=== PATIENT | female | born 2000 | race African-American/Black ===

== ENCOUNTER → 2022-10-02 11:49 | Outpatient (BNVA) | payer OTHER, SELFPAY | PROVIDERS: Visit Provider Orthopaedic Surgery | DX: S83.282A Other tear of lateral meniscus, current injury, left knee, initial encounter (principal) | CPT/HCPCS: 99202 ==

== ENCOUNTER 2022-11-02 07:12 | Outpatient (REF) | payer OTHER, SELFPAY ==
--- NOTE | ~2022-11-02 | XR_ITS ---
EXAMINATION: XR KNEES, AP STANDING VIEW, BILATERAL XR KNEE, SUNRISE AND LATERAL VIEWS, LEFT CLINICAL INFORMATION: Pain. COMPARISON: 08/28/2022. TECHNIQUE: AP standing view of both knees with sunrise and lateral views of the left knee. FINDINGS: AP standing view of both knees does not demonstrate any evidence of acute fracture or dislocation. Medial and lateral joint space compartments are maintained. No bony abnormality appreciated. [place] and lateral views of the left knee do not demonstrate any evidence of acute fracture or dislocation. No effusion is appreciated. The patellofemoral joint space is maintained. XR/XR knee standing BI IMPRESSION: No significant bony abnormality of the left knee identified.
--- NOTE | ~2022-11-02 | XR_ITS ---
EXAMINATION: XR KNEES, AP STANDING VIEW, BILATERAL XR KNEE, SUNRISE AND LATERAL VIEWS, LEFT CLINICAL INFORMATION: Pain. COMPARISON: 08/28/2022. TECHNIQUE: AP standing view of both knees with sunrise and lateral views of the left knee. FINDINGS: AP standing view of both knees does not demonstrate any evidence of acute fracture or dislocation. Medial and lateral joint space compartments are maintained. No bony abnormality appreciated. [place] and lateral views of the left knee do not demonstrate any evidence of acute fracture or dislocation. No effusion is appreciated. The patellofemoral joint space is maintained. XR/XR knee LT 2V IMPRESSION: No significant bony abnormality of the left knee identified.
== END 2022-11-02 07:13 | disposition home or self-care (01) ==
LOC: HO.HOSX 07:12
PROVIDERS: Visit Provider Physician Assistant
DX: M25.562 Pain in left knee (principal)
CPT/HCPCS: 73560; 73565

== ENCOUNTER 2022-11-11 05:50 | Day surgery (SDC) | payer OTHER, SELFPAY ==
[2022-11-04 14:20] VITALS: BMI 23.1
[2022-11-11] VITALS (7 sets, daily range): BP systolic 102–132; BP diastolic 51–79; PULSE 73–91; RESP 15–18; TEMP 36.4–37.2; O2SAT 98–100
[2022-11-11 06:21] LABS: UPreg QC Valid YES; Urine Pregnancy NEGATIVE (NEGATIVE)
[2022-11-11] MEDS: Lactated Ringers 1,000 ML 100 ML IVCONT (06:30)
--- NOTE | 2022-11-11 07:27 | MHC.SHP ---
Pre-Procedural Eval Section A Date of Service: 11/11/22 The patient is an INPATIENT: No Changes since office visit: No Cold of Flu in the past 2 weeks, No New Medical Problems, No Changes in Medication and No Patient answered all questions The History & Physical has been completed within 30 days and I have reviewed it.: Yes Section B Chief Complaint: Other tear of lateral meniscus, current injury, le Allergies: Allergies Allergy/AdvReac Type Severity Reaction Status Date / Time No Known Allergies Allergy Verified 11/11/22 06:08 Plan I have reviewed the history and physical and performed a pertinent physical examination on my patient. No changes have occurred unless specified. Time Spent With Patient Time: Total time managing care of this patient today ____ minutes.
--- NOTE | 2022-11-11 07:28 | P.CONAN_ITS ---
HPI - Anesthesia Eval Consult details Narrative: 22 F for knee arthroscopy Smoker PMFSH Active Problems Active Problems: All Active Problems (Updated 11/04/22 @ 14:19 by Lauren Ortiz RN) Tear of lateral meniscus of left knee (Acute) Past Medical History Medical History No pertinent past medical history Functional capacity: independent ambulation Family History Family history of problems with anesthesia: No Surgical History Surgical History No pertinent past surgical history History of Problems with Anesthesia: No Social History Social History Are you a primary manager long term care to a significant other at home: No Do you presently have visiting nurse or other home services: No Patient Tobacco Use Status: Never used Tobacco Current occupational status: employed Current occupation: [employer] Allergies Allergy/AdvReac Type Severity Reaction Status Date / Time No Known Allergies Allergy Verified 11/11/22 06:08 Active Medications: Current Medications Lactated Ringer's (Lr) 1,000 mls @ 100 mls/hr IVCONT .Q10H MERE Last Admin: 11/11/22 06:30 Dose: 100 mls/hr Cefazolin Sodium/Dextrose (Ancef) 2 gm in 50 mls @ 100 mls/hr IV POSTOP MERE Exam Exam Date and Time: November 11, [id number] Height,Weight and Vital Signs: Height 5 ft 4 in Weight 61.235 kg Last Vital Signs Temp 98.4 F 11/11/22 06:13 Pulse 88 11/11/22 06:13 Resp 15 11/11/22 06:13 BP 132/79 11/11/22 06:13 Pulse Ox 99 11/11/22 06:13 O2 Del Method 11/11/22 06:13 Pertinent Lab Results Pertinent Lab Results: Laboratory Tests 11/11/22 06:10 Urine Test NEGATIVE Airway Mallampati Class: III TM Dist: >3cm Neck ROM: Full Loose/Missing/Broken Teeth: Yes (Caps ) Heart: S1,S2 Lungs: b/l breath sounds Assessment and Plan Assessment Anesthesia Assessment: Anesthesia Plan Discussed and Chart Reviewed Final Anesthetic Review Family History of Problems with Anesthesia: No History of Problems with Anesthesia: No NPO: Yes ASA Class: II Final Preanesthetic Review: Meds/Allgs Chart Reviewed, Consent Obtained/Reviewed and Anes Risks/Benef Reviewed Patient Risk: Intermediate Procedure Risk: Intermediate Anesthetic Plan Anesthetic Plan: GA Disposition: Standard PACU
--- NOTE | 2022-11-11 09:04 | PM.OP ---
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
--- NOTE | 2022-11-11 11:10 | W.PM.OPN ---
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 A time-out was called to identify proper site proper procedure proper surgeon and IV antibiotics per weight were administered. I began by exsanguinating the limb and insufflating tourniquet to 300 mm Hg. Then made a standard anterolateral stab incision. The knee was insufflated with water and 30 degree arthroscope was placed. There was grade 0 fibrillations of the patella and overall the suprapatellar pouch and the gutters were clean. I descended into the medial compartment where I made my medial portal under direct visualization. There was a normal medial compartment and medical meniscus. The ACL was intact but the lateral meniscus was markedly abnormal. There was a near complete discoid meniscus with the anterior meniscus enveloping thelateral ACL and the intermeniscal ligament taught and abrading the ACL. The lateral capsule was abrading the anterolateral femoral condyle and the posterior and anterior lateral meniscus was torn. I used a combination of biter shaver and cautery to remove unstable portions of the meniscus laterally and posteriorly. I saucerized the central portion of the lateral meniscus revealing nl cartilage underneath. The lateral meniscus was unstable while the posterior portion was stable. Therefore I placed on 2.4 mm all suture anchor through the inferolateral extra-articular tibial plateau and using a suture tape re-approximated the anterolateral meniscus. A capsular repair was not possible given the abnormal derangement of the menicus and how taught and medialized it was. This repair stabilized the tear and I was able to range the knee fully and could now visualize the lateral plateau. The posterior lateral meniscus was diminutive but intact and stable. Approximately 30% of the meniscus was saucerized. Once I was satisfied with the lateral meniscus I removed all instrumentation and closed the portals nylon. 25 mL of 2% Marcaine with epinephrine was injected into the joint and the surrounding soft tissues. Patient was then placed in sterile dressing extubated brought recovery room stable condition. There were no known complications.
== END 2022-11-11 10:35 | disposition home or self-care (01) ==
PROVIDERS: Anesthesiology; Visit Provider Orthopaedic Surgery
PROC: (CPT 29870; principal; 2022-11-11 07:30)
DX: S83.272A Complex tear of lateral meniscus, current injury, left knee, initial encounter (principal); M25.562 Pain in left knee; M23.362 Other meniscus derangements, other lateral meniscus, left knee; X58.XXXA Exposure to other specified factors, initial encounter; Y93.9 Activity, unspecified; Y92.9 Unspecified place or not applicable; Y99.8 Other external cause status
CPT/HCPCS: 29882; 81025; A4649; C1713; J0131; J0171; J0690; J1100; J1170; J2250; J2405; J2795

== ENCOUNTER → 2022-11-20 09:58 | Outpatient (BNVA) | payer OTHER, SELFPAY | PROVIDERS: Visit Provider Orthopaedic Surgery | DX: Z13.89 Encounter for screening for other disorder (principal) ==

== ENCOUNTER → 2022-11-27 10:28 | Outpatient (BNVA) | payer OTHER, SELFPAY | PROVIDERS: Visit Provider Physician Assistant | DX: Z13.89 Encounter for screening for other disorder (principal) ==

== ENCOUNTER → 2022-12-25 13:02 | Outpatient (BNVA) | payer OTHER, SELFPAY | PROVIDERS: Visit Provider Physician Assistant | DX: Z13.89 Encounter for screening for other disorder (principal) ==

== ENCOUNTER → 2023-02-01 13:41 | Outpatient (BNVA) | payer OTHER, SELFPAY | PROVIDERS: Visit Provider Physician Assistant ==

== ENCOUNTER 2023-02-24 10:00 | Outpatient (RCR) | payer OTHER, SELFPAY ==
--- NOTE | 2022-11-24 16:30 | MHC.PT.EP ---
[facility] [place] Office [place] Office [place] Office [address] [place] [address] [phone] F: [phone] F: [phone] F: [phone] F: [phone] Physical Therapy Plan of Care Date of Evaluation: Date of Surgery: 11/11/22 Diagnosis: L lateral meniscal repair Assessment: 22 y/o s/p lateral meniscal repair on 11/11/22. She used B axillary crutches for the first 7 days and states she was WBAT. She was given a locking brace but states she does not wear it (states doctor says she does not have to wear it really). *She arrived with one crutch in L UE and 3 rungs too short with ~30* L knee flexion with gait. CUrrently reports difficulty with dressing, transitional movement, sleeping, walking, and stairs. Examination shows L knee PROM 0-10-60, poor quad set, poor strength of L LE, impaired posture and impaired gait pattern. Educated pt regarding importance of wearing locking brace with gait until quad is stronger and WBAT status. Recommend PT 2x/week for 10 weeks to address impairments, implement HEP, and optimize functional mobility. Frequency and Duration: The patient will be seen 2x/week for 10 weeks Short Term Goals: 5 weeks compliant with HEP Demonstrate L quad set to WNL Demonstrate L knee AROM to 0* extension Demonstrate L knee flexion to [address] Goals: 10 weeks I with HEP and self management of sx Demonstrate full knee AROM to faciliate gait Pt will improve L knee strength to 4/5 to faciliate ascending and descending stairs in step through pattern Treatment Plan: Modalities to reduce pain, spasms and effusion. Manual therapy to restore motion and function. Therapeutic exercise to improve strength and flexibility. Neuromuscular re-education for posture and balance. Therapeutic activities to return to functional activities of daily living. Electronically signed by: Adelina Aguilar PT Please sign and return to therapist. Thank you for your referral.
--- NOTE | 2023-04-01 13:56 | MHC.PT.DC ---
[facility] [place] Office [place] Office [place] Office [address] [place] [address] [phone] F: [phone] F: [phone] F: [phone] F: [phone] Physical Therapy Discharge Report Diagnosis: L lateral meniscal repair Date of Surgery: 11/11/22 Date of Evaluation: 11/24/22 Date of Discharge: 04/01/23 Treatments to Date: 20 Cancellations to Date: 0 No Shows to Date: 0 Discharge Status: Achieved Goals Improved Function Independent with HEP Discharge Summary: Pt has made good progress, has met all goals, and is returning to I gym regime. Pt continues to be challenged with higher level activities however demonstrating improvement in control and self cuing throughout. At this time, will d/c to I HEP Electronically signed by: Adelina Aguilar PT Please sign and return to therapist. Thank you for your referral.
== END 2023-04-01 13:57 | disposition home or self-care (01) ==
LOC: HO.PT 10:00
PROVIDERS: Visit Provider Physician Assistant
DX: S83.282A Other tear of lateral meniscus, current injury, left knee, initial encounter (principal)
CPT/HCPCS: 97110; 97112; 97116; 97161; 97530

== ENCOUNTER → 2023-03-15 15:31 | Outpatient (BNVA) | payer OTHER, SELFPAY | PROVIDERS: Visit Provider Physician Assistant | DX: Z47.89 Encounter for other orthopedic aftercare (principal); S83.282A Other tear of lateral meniscus, current injury, left knee, initial encounter; X58.XXXA Exposure to other specified factors, initial encounter; Y93.9 Activity, unspecified; Y92.9 Unspecified place or not applicable; Y99.8 Other external cause status | CPT/HCPCS: 99212 ==

== ENCOUNTER 2025-06-11 13:01 | Outpatient (AMB) | payer OTHER, SELFPAY ==
--- NOTE | 2025-06-11 13:08 | A.OFFVIS_ITS ---
Intake Visit Reasons: OV- left knee , 11/11/22 NE Intake Note: Reuben is a 25 year old female who presents today for a follow up of her Left Knee 11/11/22 NE. Patient reports when she is going to the gym when she is going for a squat she feels discomfort. Patient is not having pain at the moment and she wants to know what she can and cannot do when she goes to the gym. Allergies No Known Allergies Allergy (Verified 03/15/23 15:39) HPI HPI OV- left knee , 11/11/22 NE: Details: Ms. Haddad is a 25-year-old female who presents to the office today for recommendations on activity modification with gym activities. She is status post left knee arthroscopy performed on 11/11/[address] Newman for left lateral discoid meniscus saucerization and repair. Patient reports that when she is a gentleman she is performing deep squats that she has increase in pain. She is looking to this is what would be safe exercises for her to perform. She reports that today she is not experiencing any pain and overall is happy with her postoperative recovery. [facility] Medical History No pertinent past medical history Surgical History No pertinent past surgical history Social History (Updated 06/11/25 @ 13:12 by Charu Cleveland) Are you a primary palliative care nurse to a significant other at home: No Do you presently have visiting nurse or other home services: No Patient Tobacco Use Status: Never used Tobacco Current occupational status: employed Current occupation: food safety auditor Review of Systems Const All systems reviewed & are unremarkable except as noted in HPI and below Physical Exam Extrem Other: Left knee: Normal to inspection. No ecchymosis, erythema, or joint effusion. No tenderness to palpation along the medial or lateral joint lines. Full knee extension and flexion. Negative Ken's. Negative anterior drawer. NVI. Assessment & Plan Assessment & Plan (1) Tear of lateral meniscus of left knee: Code(s): S83.282A - Other tear of lateral meniscus, current injury, left knee, initial encounter Category: Medical Plan Ms. Haddad is a 25-year-old female who presents to the office today for recommendations on activity modification with gym activities. She is status post left knee arthroscopy performed on 11/11/[address] Newman for left lateral discoid meniscus saucerization and repair. Patient reports that when she is a gentleman she is performing deep squats that she has increase in pain. She is looking to this is what would be safe exercises for her to perform. She reports that today she is not experiencing any pain and overall is happy with her postoperative recovery. I discussed with the patient that the following exercises are not recommended status post discoid meniscus saucerization and repair. * Deep knee bends * Twisting or pivoting motions * Heavy leg press * High impact cardio * Lateral movement - lunges shuttle runs * Hamstring curls - if painful More comfortable options would include: * SLE * Stationary bike * Glute bridges * Isometric holds * No limitations with upper body Coding Level of Care Code Est Pt Level 3 (78953) Diagnoses Tear of lateral meniscus of left knee S83.282A
--- OUTSIDE RECORDS SUMMARY | 2025-06-11 13:41 | XMS_ITS | Clinical Summary ---
Author Organization [facility] Address [address] [place] [address] Phone Care Team Providers Care Grey Iron Molder Name Role Phone Yosi Samuel MD Primary Care Provider [phone] Allergies No known active allergies Medications fluconazole (Diflucan) 150 mg tablet Repeat in 3 days if no improvement 2 tablet Active Active Problems Problem Noted Date Diagnosed Date Anal fissure 05/03/2023 Overview (01/05/2025): Last Assessment & Plan: Comfort measures reviewed. Encouraged PO hydration to keep stool soft. Enlarged thyroid 04/20/2023 Overview (01/05/2025): 07/26/2024 soft tissue sono IMPRESSION IMPRESSION: Unremarkable thyroid ultrasound Last Assessment & Plan: TSH ordered Immunizations Name Administration Dates Next Due DTaP (Infanrix) 6wks to less than 7yo ,07/17/2003,2002,08/22,2002 HPV, Quadrivalent 01/16/2015,10/17/2014,08/16/20 14 Hepatitis B Pediatric (Enger ix B; Recombivax HB) to less than 20 yo 11/22/2006,11/11/2003,2002 Hib (HbOC) 07/27/2003, 2,2002,06/21 IPV Inactivated polio (Ipol) 6wks and older 04/14/2006,2002,2002,05/30 Influenza trivalent, with pr eservative (Fluzone; Afluria) 6mo and older 09/30/2011 MMR, measles mumps and rubel la Live (Priorix; M-M-R II) 12mo and older 04/14/2006,04/10/2003 Meningococcal MCV4P 07/13/2019,08/01/2014 Pneumococcal Conjugate Vacci ne, 7 Valent 07/17/2003,2002,2002,06/21 Tdap Tetanus diptheria acell ular pertussis (Boostrix; Adacel) 7yo and older 02/24/2017,05/28/2011 Varicella live (Varivax) 12m o and older 04/14/2007,04/10/2003 Surgical History Surgery Date Site/Laterality Comments OTHER SURGICAL HISTORY PROCEDURE: HISTORY OTHER; COMMENT: left knee mensicus repair oct 2022 Medical History Medical History Date Comments Chlamydia 04/20/2023 DX:Chlamydia; CO MMENT: Refill on Rx Azithromycin given today for treatment of patient and partner. RTO 3 months for test of reinfection. Encouraged condom use for STI prevention. Family History Medical History Relation Name Comments No Known Problems Father No Known Problems Mother Relation Name Status Comments Brother 1 1/2 Alive Brother 2 1/2 Alive Father Alive Mother Alive Sister 1/2 Alive Social History Tobacco Use Types Packs/Day Years Used Date Smoking Tobacco: Never Smokeless Tobacco: Never Alcohol Use Standard Drinks/Week Comments Yes 0 (1 standard drink = 0.6 oz pur e alcohol) Comments Unknown Sex and Gender Information Value Date Recorded Sex Assigned at Not on file Legal Sex Female 8:34 PM EST Gender Identity Not on file Sexual Orientation Not on file Obstetrics History Last Filed Vital Signs Vital Sign Reading Time Taken Comments Blood Pressure 118/74 01/05/2025 1:19 PM EST Pulse 86 01/05/2025 1:19 PM EST Temperature - - Respiratory Rate - - Oxygen Saturation - - Inhaled Oxygen Concentration - - Weight 63.2 kg (139 lb 6.4 oz) 01/05/2025 1:19 P M EST Height 162.6 cm (5' 4 ) 01/05/2025 1:19 PM EST Body Mass Index 23.93 01/05/2025 1:19 PM EST Plan of Treatment Health Maintenance Due Date Last Done Comments Meningococcal B Vaccine (1 of 2 - Standard) 2018 HIV Screening 12/10/2023 Hepatitis C Screening 12/10/2023 Social Influencers of Health Screening 12/10/2023 COVID-19 Vaccine ( season) 2024 01/09/2022, 06/30/2021, 06/07/2021 Depression Screening 11/15/2024 Influenza Vaccine (#1) 2025 09/30/2011 Gonorrhea/Chlamydia Screening 01/05/2026 01/05/2025 DTaP,Tdap,and Td Vaccines (7 - Td or Tdap) 02/24/2027 02/24/2017, 05/28/2011, 04/14/2006, Additional history exists Cervical Cancer Screening: Pap Smear 07/14/2027 07/14/2024, 04/20/2023 Pneumococcal Vaccine: Pediatrics (0 to 5 Years) and At-Risk Patients (6 to 49 Years) Completed 07/17/2003, 2002, 2002, Additional history exists HIB Vaccines Completed 07/27/2003, 01/2002, 2002, Additional history exists IPV Vaccines Completed 04/14/2006, 01/2002, 2002, Additional history exists MMR Vaccines Completed 04/14/2006, 04/10/2003 Hepatitis B Vaccines Completed 11/22/2006, 11/11/2003, 2002 Varicella Vaccines Completed 04/14/2007, 04/10/2003 HPV Vaccines Completed 01/16/2015, 01/2014, 08/16/2014 Meningococcal ACWY Vaccine Completed 07/13/2019, Hepatitis A Vaccines Aged Out No long er eligible based on patient's age to complete this topic RSV Immunization Patients Under 20 months Aged Out No longer eligible based on patient's age to complete this topic Procedures Procedure Name Priority Date/Time Associated Diagnosis Comments CHLAMYDIA TRACHOMATIS AND NEISSERIA GONORRHOEAE PCR Routine 01/05/2025 1:39 PM EST Acute vaginitis PAP SMEAR Routine 07/14/2024 from Last 3 Months or Most Recently Relevant to Health Maintenance Results * Chlamydia trachomatis and Neisseria gonorrhoeae molecular study (01/05/2025 1:39 PM EST) Neisseria gonorrhoeae PCR Negative Negative LAB MOLECULAR DIAGNOSTICS METHOD 01/06/2025 9:34 AM EST [facility] Chlamydia trachomatis PCR Negative Negative LAB MOLECULAR DIAGNOSTICS METHOD 01/06/2025 9:34 AM EST [facility] Swab Cervix uteri structure / Unknown Non-blood Collection / Unknown 01/05/2025 1:39 PM EST 01/05/2025 4:19 PM EST Dolores Summers [facility] MICROBIOLOGY - GENERAL OR DERABLES Final Result Performing Organization Address City/[facility]/ZIP Co de Phone Number [facility] [address] [place] [address], [place] [phone] * Pap smear (07/14/2024) 07/14/2024 Narrative HISTORICAL TESTING LAB RESULTING AGENCY - 07/19/2024 4:15 PM EDT [id number] THINPREP PAP, IMAGED: NEGATIVE FOR SQUAMOUS INTRAEPITHELIAL LESION AND MALIGNANCY. FUNGAL ORGANISMS MORPHOLOGICALLY CONSISTENT WITH MIGDALIA SPP. SHIFT IN MICHAEL, SUGGESTIVE OF BACTERIAL VAGINOSIS. PIERRE PATRICIA(ASCP) (CASE ELECTRONICALLY SIGNED 07 19 2024) ADEQUACY: SATISFACTORY ENDOCERVICAL/TRANSFORMATION ZONE COMPONENT PRESENT. SOURCE: THINPREP PAP HPV IF ASCUS, CERVICAL, IMAGED CLINICAL INFORMATION: HPV IF DIAGNOSIS OF ASCUS. HORMONES, PAP HX ASCUS, NEG HPV 2022, LMP 07/06/24, [[id number]] Dolores Summers [facility] CYTOLOGY ORDERABLES Final Result HISTORICAL TESTING LAB RESULTING AGENCY from Last 3 Months or Most Recently Relevant to Health Maintenance Insurance [facility] [address] [place] [address] Care Teams Grey Iron Molder Relationship Specialty Start Date End Date Yosi Samuel MD [address] [place] [address] PCP - General Internal Medicine 01/05/25
--- OUTSIDE RECORDS SUMMARY | 2025-06-11 13:41 | XMS_ITS | Data Portability ---
Author Organization [facility], [facility] Address [address] [place] [address] Assessment Encounter Date Assessment Date Assessment LastModified by Organization Details LastModified Time 02/15/2024 02/15/2024 I am seeing the patient today under the supervision of Dr. Kraft who was available but did not see the patient. HPI: Patient is a pleasant 23-year-old female presents the clinic today for evaluation regards to complaints with her left foot. She localizes pain about the first MTP as well as deformity about the first MTP. She has been having this for years without acute inciting event. She states it is slowly gotten more cumbersome with time. She has not tried any wider toe box shoe wear, bunion strap, anti-inflammatory medication. Denies previous injuries or surgeries to her foot. Denies numbness and tingling. She is not on any medications at baseline. Denies smoking history. Past family, medical, social history and review of systems has been reviewed, updated and signed by me and is located in the patient's chart. Examination: The patient is well appearing and in no apparent distress. Alert and oriented x3. Gait is symmetric. Left foot exam: Skin is intact without evidence of erythema edema or ecchymosis noted. Evidence of hallux valgus deformity noted to inspection about the MTP. There is evidence of limited flexion extension of the MTP and minimal rigidity of current passive correction. Digit range of motion is grossly intact. FHL EHL are intact. Neurovascular intact distally. Capillary refills less than 3 seconds. There does not appear to be any obvious instability at the first TMT. Palpable dorsal pedis and posterior tibial pulses noted. X-rays ordered, obtained and reviewed at [facility]: 3 views of the left foot were ordered, obtained, reviewed indefinitely by my self today. They demonstrate evidence of a hallux valgus deformity noted to the MTP of the left foot. There does not appear to be any obvious fracture or dislocation noted. Impression: Hallux valgus left foot in 23 year-old female Plan: I discussed my findings of the patient today. We discussed the pathophysiology of her condition today. Patient is recommended to start by trying wider toe box shoes. She's given a prescription for a bunion strap as was given some toe spacers. She is encouraged to utilize Tylenol and ibuprofen as needed for pain relief. She will follow-up in 8 weeks to see how she is doing. All questions and concerns were answered and addressed. She will contact the clinic in the meantime for any further questions or concerns.Speech recognition electronic imaging system operator software was used to create portions of this document. An attempt at proofreading has been made to minimize errors. Please call for corrections.The patient is ambulatory, but has weakness and/or instability of their extremity which requires stabilization from this semi-rigid/rigid orthosis to improve their function. Verbal and written instructions for the use and application of this item were given. Patient was instructed that should the brace result in increased pain, decreased sensation, increased swelling or an overall worsening of their medical condition, to please contact our office immediately. [email or web address] Not available 02/15/2024 10:26:04 04/19/2024 04/19/2024 I am seeing the patient today under the supervision of Dr. Kraft who was available but did not see the patient. HPI: Patient is a pleasant 24-year-old female presents the clinic today for evaluation regards to complaints with her left foot. She localizes pain about the first MTP as well as deformity about the first MTP. She has been having this for years without acute inciting event. She states it is slowly gotten more cumbersome with time. She has not tried any wider toe box shoe wear, bunion strap, anti-inflammatory medication. Denies previous injuries or surgeries to her foot. Denies numbness and tingling. She is not on any medications at baseline. Denies smoking history. Clinical update: Patient presents to the clinic today for reevaluation. She was previously seen by myself and diagnosed with a hallux valgus deformity. Patient has been utilizing toe spacers and a bunion strap which she provided some relief to her foot pain as well as been working on utilizing wider toe box shoe wear. Unfortunately there is still some occasional pain in she would like to discuss other surgical options to include surgery. She denies interval trauma. Denies numbness and tingling. Past family, medical, social history and review of systems has been reviewed, updated and signed by me and is located in the patient's chart. Examination: The patient is well appearing and in no apparent distress. Alert and oriented x3. Gait is symmetric. Left foot exam: Skin is intact without evidence of erythema edema or ecchymosis noted. Evidence of hallux valgus deformity noted to inspection about the MTP. There is evidence of limited flexion extension of the MTP and minimal rigidity of current passive correction. Digit range of motion is grossly intact. FHL EHL are intact. Neurovascular intact distally. Capillary refills less than 3 seconds. There does not appear to be any obvious instability at the first TMT. Palpable dorsal pedis and posterior tibial pulses noted. X-rays ordered, obtained and reviewed at [facility]: 3 views of the left foot were ordered, obtained, reviewed indefinitely by my self today. They demonstrate evidence of a hallux valgus deformity noted to the MTP of the left foot. There does not appear to be any obvious fracture or dislocation noted. Impression: Hallux valgus left foot in 23 year-old female Plan: I discussed my findings of the patient today. We discussed the pathophysiology of her condition today. She will continue with her shoewear and insert modifications. Will have her follow-up with one of our foot surgeons to discuss surgical intervention to include MIS bunionectomy versus MTP fusion versus other bunion correction pending upon clinical expertise. Patient is otherwise healthy. She is encouraged to continue utilizing Tylenol and ibuprofen as needed for pain relief. She will contact the clinic in the meantime for any further questions or concerns.Speech recognition electronic imaging system operator software was used to create portions of this document. An attempt at proofreading has been made to minimize errors. Please call for corrections.The patient is ambulatory, but has weakness and/or instability of their extremity which requires stabilization from this semi-rigid/rigid orthosis to improve their function. Verbal and written instructions for the use and application of this item were given. Patient was instructed that should the brace result in increased pain, decreased sensation, increased swelling or an overall worsening of their medical condition, to please contact our office immediately. [email or web address] Not available 04/19/2024 13:29:08 06/01/2024 06/01/2024 CHIEF COMPLAINT: Left painful bunion HISTORY OF PRESENT ILLNESS: Reuben is a very pleasant 24-year-old woman who is kindly referred by Nancie MORAN with regard to chronic painful left bunion deformity. She has had pain for the past 2-3 years. She denies any pain or bunion on the right side. She is not sure if she had a previous injury involving her left great toe. She does have some stiffness of the left great toe and has difficulty wearing high heels. She has difficulty tolerating close toed shoes because of pain over the medial eminence. She has tried a toe spacer as well as wider fitting shoes. She works as an bricklayer's assistant. She is here today to discuss surgical treatment. She denies a history of Lyme disease or rheumatologic disease. She is a nonsmoker. Past family, medical, social history and review of systems has been reviewed, updated and is located in the patient s chart. PHYSICAL EXAMINATION: General: thin, healthy appearing, in no acute distress Psych: alert and oriented x3, normal mood Skin: intact without ulceration or lesion, normal turgor Lungs: respirations unlabored Cardiac: heart rate regular, normal peripheral pulses Musculoskeletal: On standing exam, she has a moderate to severe left hallux valgus deformity with some metatarsus adductus and some valgus deviation of her lesser toes. On seated exam, she is tender over the medial eminence. She is nontender about the first TMT joint and there is some first TMT instability. Her lesser toes are nontender. She is distally neurovascular intact. She only has about 20-30 of dorsiflexion range of motion and 20 of plantarflexion of the first MTP joint. X-RAYS: Previous x-ray images were individually reviewed, demonstrating moderate to severe left hallux valgus deformity and metatarsus adductus. Her hallux valgus angle is 34 and her LUZ is 13.4 . There is lateral sesamoid subluxation and her deformity is incongruent. IMPRESSION: Left hallux valgus, first TMT instability PLAN: I discussed these findings with the patient. We discussed surgical treatment options. Given her increased LUZ and first TMT instability, if she elects to undergo surgery, I would recommend left Lapidus bunionectomy, MIS Shawn osteotomy and calcaneal autogenous bone graft augmentation. She will be nonweightbearing for 6 weeks following surgery to allow healing of her arthrodesis and osteotomy. She would like to think about this. A Lapidus AOFAS handout was provided. All questions were answered. I explained that her great toe status would not improve following Lapidus procedure but I believe she would do better with a straight toe. I would not consider an MTP arthrodesis given her young age. Risks include, but are not limited to, wound healing problems, deep infection, nerve/vessel injury, nonunion, malunion, symptomatic hardware, persistent pain, need for further surgery. The expected postoperative course was outlined in detail. The patient understands the nature and magnitude of this surgery and wishes to proceed. All questions were answered. [email or web address] Not available 06/01/2024 14:07:19 Plan of Treatment Reminders Order Date Submit Date Provider Last Modified By Organization Details Last Modified Time Details Appointments None recorded. Lab None recorded. Referral None recorded. Procedures None recorded. Surgeries orthopaedic surgery (SURG) 2023 024 [email or web address] Not available 4 15:40:48 Imaging None recorded. Medication Orders None recorded. Patient TargetsNo targets recorded. Patient InstructionsNo instructions recorded. Reason for Referral None Reported. Results Created Date Observation Date Name Description Value Unit Range Abnormal Flag Note LastModifiedBy Organization Detail LastModifiedTime 07/15/20 24 08/28/2022 alona david/oj padilla tic resul t No observ ation record ed. [email or web address] Not Available 06/17 09:54:33 Result Notes None recorded. Problems Name Problem SNOMED Code Status Onset Date Resolution Date Notes Provider Name and Address Organization Details Recorded Time Faisal' s bunion of left foot [id number] Active 2023 LAN richter [place] - [place] [facility] 4 10:20:11 Problem Notes None recorded. Medical Equipment None Reported. Allergies No known drug allergies Medications Name Sig Start Date Stop Date Status Note LastModified by Organization Details LastModified Time tretinoin 0.1 % topical cream APPLY TO FACE EVERY NIGHT STARTING EVERY TWO TO THREE NIGHTS SLOWLY WORKING UP TO EVERY NIGHT active Not Available Not Available No t Available fluconazole 150 mg tablet TAKE 1 TABLET BY MOUTH, REPEAT DOSE IN 72HOURS. active Not Available Not Available Not Available metronidazol e 0.75 % (37.5 mg/5 gram) vaginal gel INSERT 1 APPLICATORF UL VAGINALLY EVERY DAY FOR 7 DAYS active Not Available Not Available N ot Available metronidazol e 500 mg tablet TAKE 1 TABLET BY MOUTH TWICE A DAY FOR 7 DAYS active Not Available Not Available No t Available azithromycin 500 mg tablet TAKE 2 TABLETS BY MOUTH ONE DOSE active Not Available Not Available No t Available Vitals Date Recorded Body height Body mass index (BMI) Body weight Provider Name and Address Organization Details Last Updated DateTime 02/15/2024 162.56 cm 23.2 kg/m2 39669.97 g LAN LEVY [facility] 02/15/2024 10:06:05 Date Recorded Body height Body mass index (BMI) Body weight Provider Name and Address Organization Details Last Updated DateTime 04/19/2024 162.56 cm 23.2 kg/m2 59453.97 g Jessie Esqueda [facility] 04/19/2024 13:15:33 Date Recorded Body height Body mass index (BMI) Body weight Provider Name and Address Organization Details Last Updated DateTime 06/01/2024 162.56 cm 23.2 kg/m2 63560.97 g TODD Ghosh [facility] 06/01/2024 13:45:04 Social History None recorded. Functional Status None recorded. Mental Status None recorded. Family History Nothing Reported. Medical History No medical history recorded. Gynecological HistoryNo gynecological history recorded. Obstetrics History GPAL:G 0 P 0 0 0 0 Past Encounters Encounter ID Performer Location Encounter Start Date Encounter Closed Date Diagnosis/Indication Diagnosis SNOMED-CT Code Diagnosis ICD10 Code Diagnosis Note [id number] TYRONE Ruby [address] [place] [address] 02/15/2024 10:00:07 02/15/2024 10:31:54 Tailor's bunion of left foot [id number] M21.374 [id number] TYRONE Ruby [address] [place] [address] 04/19/2024 12:59:20 05/17/2024 15:13:51 Tailor's bunion of left foot 8629107188 761417 M21.234 [id number] MD Colin Best [address] [place] [address] 06/01/2024 13:39:56 06/29/2024 12:11:28 Pain in left foot 5839199421 40425 M79.672 Acquired l eft hallux valgus 6762956486 39779 M20.12 Health Concerns Section Related Observation LastModified by Organization Detai ls LastModified Time None Recorded Concern Status LastModified by Organization Details LastModified Time None Recorded Advance Directives Directive None Recorded Payers Insurance Date Sequence Insurance Name Policy Number Policy Valencia Covered Member ID Valencia Member ID Guarantor Name 06/29/2024 1 [facility] [id number] Reuben Haddad [id number] Reuben Haddad OBGyn Episode No OBEpisode recorded.
--- OUTSIDE RECORDS SUMMARY | 2025-06-11 13:41 | XMS_ITS ---
Author Name [facility] Organization Unknown Care Team Organization Name Specialty Phone Email Start Date End Da te [facility] JW FLORES [facility] 09/22/2022 07/03/2024
== END 2025-06-11 13:57 | disposition home or self-care (01) ==
LOC: HO.HOS 13:02
PROVIDERS: Visit Provider Physician Assistant
DX: S83.282A Other tear of lateral meniscus, current injury, left knee, initial encounter (principal)
CPT/HCPCS: 99213